=== PATIENT | male | born 1955 | race Caucasian/White ===

== ENCOUNTER 2017-10-07 11:42 | Inpatient (IN) | payer BC, OTHER ==
[~2017-10-07] VITALS: Ht 180.3 cm; Wt 79.3 kg
[2017-10-07] MEDS ORDERED: ASPirin 81 mg TAB PO ONE (12:00)
[2017-10-07] MEDS ORDERED: SODIUM CHLORIDE 0.9% 1,000 ML IV ONE (12:00)
[2017-10-07] MEDS ORDERED: METOPROLOL TARTRATE 1MG/1ML-5ML VIAL IV ONE (12:00)
[2017-10-07 12:29] LABS: Basophils # (auto) 0 uL; Basophils % (auto) 0.1 % (0.0-2.0); Eosinophils # (auto) 0 uL; Hematocrit 42.7 % (41.0-53.0); Hemoglobin 14.6 g/dL (13.5-17.5); Lymphocytes # (auto) 0.6 uL; Lymphocytes % (auto) 7.7 % (10.0-50.0); Mean Corpuscular Hgb Conc. 34.2 g/dL (32.0-36.0); Mean Corpuscular Volume 99.6 fL (80.0-100.0); Mean Platelet Volume 7.5 fL (6.9-10.8); Monocytes # (auto) 0.7 uL; Monocytes % (auto) 8.6 % (0.0-12.0); Neutrophils # (auto) 6.4 uL; Neutrophils % (auto) 83.6 % (37.0-80.0); Platelet Count (auto) 225 10^3/uL (140-450); Red Cell Distribution Width 12.9 % (11.8-14.3); White Blood Cell 7.7 10^3/uL (4.4-10.8)
[2017-10-07 12:49] LABS: INR 0.96 (0.9-1.15); Partial Thromboplastin Time 24.2 sec (22.64-33.71); Prothrombin Time 10.5 sec (9.37-12.3)
[2017-10-07 13:01] LABS: B-Type Natriuretic Peptide 66.19 pg/mL (0-100)
[2017-10-07 13:03] LABS: Albumin 3.8 g/dL (3.4-5.0); Alkaline Phosphatase 60 U/L (45-117); Anion Gap 8 (5-15); Aspartate Aminotransferase 13 U/L (15-37); BUN/Creatinine Ratio 16.3; Bilirubin, Total 0.9 mg/dL (0.2-1.0); Blood Urea Nitrogen 15 mg/dL (7-18); Calcium 8.9 mg/dL (8.5-10.1); Carbon Dioxide 27 mmol/L (21-32); Chloride 106 mmol/L (98-107); GFR African American 107 mL/min; GFR Non-African American 89 mL/min; Glucose 154 mg/dL (74-106); Magnesium 2.2 mg/dL (1.6-2.6); Sodium 141 mmol/L (136-145); Total Protein 7.2 g/dL (6.4-8.2)
[2017-10-07 13:08] LABS: Temperature: 23.7 C (20.0-25.0)
[2017-10-07] MEDS ORDERED: SODIUM CHLORIDE 0.9% 1,000 ML IV SCH (13:47)
[2017-10-07] MEDS ORDERED: ENOXAPARIN SOD 80 MG/0.8ML SYRINGE SC ONE ×2 (14:00→14:15)
[2017-10-07] MEDS ORDERED: LACTULOSE 20Gm/30ML SOLN PO PRN (14:00)
[2017-10-07] MEDS ORDERED: ACETAMINOPHEN 500 MG TAB PO PRN (14:00)
[2017-10-07] MEDS ORDERED: MORPHINE SULF INJ 2 MG/ML SYRINGE 1ML IV PRN ×2 (14:00)
[2017-10-07] MEDS ORDERED: NITROGLYCERIN 0.4 MG SL TAB SL PRN (14:00)
[2017-10-07] MEDS ORDERED: PROMETHAZINE HCL 25 MG/ML 1ML IV PRN (14:00)
[2017-10-07] MEDS ORDERED: LORazepam 0.5 MG TAB PO PRN (14:00)
[2017-10-07] MEDS ORDERED: TEMAZEPAM 15 MG CAP PO PRN (14:00)
[2017-10-07] MEDS ORDERED: METOPROLOL TARTRATE 25 MG TAB PO SCH (15:00)
[2017-10-07 15:10] LABS: Urine Bilirubin Negative (Negative); Urine Blood Negative /uL (Negative); Urine Color Yellow (Yellow); Urine Glucose TRACE mg/dL (Normal); Urine Ketone Negative (Negative); Urine Nitrite Negative (Negative); Urine RBC <1 /hpf (0 - 3); Urine pH 6.5 (5.0-8.0)
[2017-10-07] MEDS: HYDROcodone-ACET 5/325MG TAB PO PRN (16:13)
[2017-10-07] MEDS ORDERED: LISI2.5T47 PO (16:46)
[2017-10-07] MEDS ORDERED: LISI10TA6 (16:46)
[2017-10-07 20:35] VITALS: BP 124/82
[2017-10-07 21:25] VITALS: BP 124/82
[2017-10-07] MEDS: SODIUM CHLORIDE 0.9% 1,000 ML IV SCH (21:53)
[2017-10-07] MEDS ORDERED: ATORVASTATIN 20 MG TAB PO SCH (22:00)
[2017-10-07] MEDS: ENOXAPARIN SOD 80 MG/0.8ML SYRINGE SC SCH (23:04)
[2017-10-07] MEDS: AMIODARONE HCL 200 MG TAB PO SCH (23:05)
[2017-10-08 05:00] VITALS: BP 114/79
[2017-10-08 06:54] LABS: Cholesterol 293 mg/dL (< 200); HDL Cholesterol 44 mg/dL (40-59); LDL Cholesterol 210 mg/dL (< 100); Triglycerides 359 mg/dL (< 150)
[2017-10-08 08:00] VITALS: BP 130/87
[2017-10-08 08:30] VITALS: BP 130/87
[2017-10-08] MEDS ORDERED: ENOXAPARIN SOD 80 MG/0.8ML SYRINGE SC SCH (10:00)
[2017-10-08] MEDS ORDERED: ASPirin 81 mg TAB PO ONE (10:00)
[2017-10-08] MEDS: AMIODARONE HCL 200 MG TAB PO SCH (10:43)
[2017-10-08] MEDS: ENOXAPARIN SOD 80 MG/0.8ML SYRINGE SC SCH (10:44)
[2017-10-08] MEDS ORDERED: METOPROLOL TARTRATE 25 MG TAB PO SCH (10:45)
[2017-10-08] MEDS: SODIUM CHLORIDE 0.9% 1,000 ML IV SCH (11:20)
[2017-10-08 14:29] VITALS: BP 150/96
[2017-10-08] MEDS: HYDROcodone-ACET 5/325MG TAB PO PRN ×2 (14:49→14:51)
[2017-10-08] MEDS ORDERED: METOPROLOL TARTRATE 25 MG TAB PO ONE (15:30)
[2017-10-08 15:49] VITALS: BP 130/87
[2017-10-08 16:00] VITALS: BP 132/88
[2017-10-08] MEDS ORDERED: METOPROLOL TARTRATE 50 MG TAB PO SCH (22:00)
[2017-10-09] MEDS ORDERED: AMIODARONE HCL 200 MG TAB PO SCH (06:00)
== END 2017-10-08 16:30 | disposition home or self-care (01) | DRG 310 ==
LOC: ER 11:42 → TELE 11:43 → TELE-WESTW 20:08
PROVIDERS: ADMIT Internal Medicine; ATTEND Internal Medicine
DX: I48.91 Unspecified atrial fibrillation (principal); E78.00 Pure hypercholesterolemia, unspecified; E78.5 Hyperlipidemia, unspecified; I10 Essential (primary) hypertension; M54.31 Sciatica, right side; K59.00 Constipation, unspecified; R73.9 Hyperglycemia, unspecified; Z80.8 Family history of malignant neoplasm of other organs or systems; Z82.3 Family history of stroke
CPT/HCPCS: 36415; 70450; 71020; 80053; 80061; 80307; 80320; 81001; 82550; 83735; 83880; 84443; 84484; 85025; 85379; 85610; 85652; 85730; 86141; 93005; 93306; 93886; 96372; 96374; 99291

== ENCOUNTER → 2017-11-04 | Outpatient (CLI) | payer BC ==
[~2017-11-04] VITALS: Ht 30.5 cm; Wt 0.5 kg
[~2017-11-04] MED LIST: ADENOSINE 63 MG in GIVE UN-DILUTED 0 ML IV ONE; ADENOSINE 90 MG/30 ML INJ IV ONE; LISI10TA6; LISI2.5T47 PO; READI-CAT 2 (BARIUM SULF)(VANILLA SMOOTHIE) 450ML ONE
== END | disposition home or self-care (01) ==
LOC: Rad HDHVI 09:05
PROVIDERS: ATTEND Internal Medicine Cardiovascular Disease
DX: K57.30 Diverticulosis of large intestine without perforation or abscess without bleeding (principal); M16.0 Bilateral primary osteoarthritis of hip; K40.20 Bilateral inguinal hernia, without obstruction or gangrene, not specified as recurrent; I70.0 Atherosclerosis of aorta; I48.0 Paroxysmal atrial fibrillation
CPT/HCPCS: 74176; 78452; 93005; 96374; 96375; A9500; J0153

== ENCOUNTER → 2017-11-14 | Outpatient (CLI) | payer BC ==
[~2017-11-14] MED LIST changes: -ADENOSINE 63 MG in GIVE UN-DILUTED 0 ML IV ONE; -ADENOSINE 90 MG/30 ML INJ IV ONE; -READI-CAT 2 (BARIUM SULF)(VANILLA SMOOTHIE) 450ML ONE
== END | disposition home or self-care (01) ==
LOC: Rad HDHVI 10:03
PROVIDERS: ATTEND Internal Medicine Cardiovascular Disease
DX: I48.0 Paroxysmal atrial fibrillation (principal)
CPT/HCPCS: 93306

== ENCOUNTER → 2018-07-12 | Outpatient (CLI) | payer BC ==
[~2018-07-12] MED LIST changes: +IOHEXOL 350 MG/ML 100ML IJ ONE
[2018-07-12 15:05] VITALS: BP 139/81
[2018-07-12 15:47] VITALS: BP 143/74
== END | disposition home or self-care (01) ==
LOC: Rad HDHVI 15:01
PROVIDERS: ATTEND Internal Medicine Cardiovascular Disease
DX: M16.0 Bilateral primary osteoarthritis of hip (principal); K57.90 Diverticulosis of intestine, part unspecified, without perforation or abscess without bleeding; N40.0 Benign prostatic hyperplasia without lower urinary tract symptoms; I10 Essential (primary) hypertension; I70.0 Atherosclerosis of aorta; F10.99 Alcohol use, unspecified with unspecified alcohol-induced disorder
CPT/HCPCS: 74175; 82565; G0463; Q9967